=== PATIENT | male | born 1955 | race Two or more races ===

== ENCOUNTER 2024-02-07 11:59 | Emergency (ER) | payer OTHER ==
[~2024-02-07] VITALS: Ht 162.6 cm; Wt 95.3 kg
[2024-02-07] MEDS ORDERED: AMLODIPINE-OLM1 EAC3 (12:18)
[2024-02-07] MEDS ORDERED: VALSARTAN-HCTZ1 EAC3 PO (12:19)
[2024-02-07 15:42] LABS: HEMATOCRIT 45.1 % (39.0-48.0); HEMOGLOBIN 15.6 g/dL (13-16.00); MEAN CELL VOLUME 90.9 fL (80.0-100.00); MEAN CORPUSCULAR HEMOGLOBIN 31.5 pg (27.00-32.0); MEAN CORPUSCULAR HGB CONC 34.6 g/dl (32.0-36.0); PLATELET COUNT 226 K/uL (150-450); RED BLOOD COUNT 4.96 M/uL (4.00-6.00)
[2024-02-07 15:57] LABS: CALCIUM 9.9 mg/dL (8.5-10.1); CREATININE SERUM 1.53 mg/dL (0.70-1.30); GFR 45.49; POTASSIUM 3.54 mEq/L (3.5-5.1)
[2024-02-07 16:26] LABS: PH,URINE 5.5 (5.0-8.0); URINE APPEARANCE Clear; URINE BILIRRUBIN Negative (NEGATIVE); URINE BLOOD Negative; URINE COLOR Yellow; URINE GLUCOSE Negative (NEGATIVE); URINE KETONE Negative (NEGATIVE); URINE LEUKOCYTE Negative; URINE NITRATE Negative; URINE UROBILINOGEN 0.2 E.U./dl
[2024-02-07 16:27] LABS: URINE BACTERIA 13.8 uL (0.0-1933)
[2024-02-07 16:28] LABS: URINE CAST 0.15 uL (0.0-1.40); URINE EPITHELIAL CELLS 1.2 uL (0.0-38.8); URINE PROTEIN 100 (NEGATIVE); URINE RBC 0.4 uL (0.0-20.8)
[2024-02-07] MEDS ORDERED: BACTRIM DS TAB1 EACH PO (18:32)
[2024-02-07] MEDS ORDERED: DICLOFENAC SODI75 MG PO (18:32)
== END 2024-02-07 19:11 | disposition home or self-care (01) ==
LOC: EDBD 12:01 → ER 12:01
PROVIDERS: General Practice
DX: N50.812 Left testicular pain (principal); M54.9 Dorsalgia, unspecified